=== PATIENT | female | born 1960 | race Caucasian/White ===

== ENCOUNTER 2017-07-02 16:27 | Emergency (ER) | payer BC, OTHER | END 2017-07-02 23:26 | disposition home or self-care (01) | LOC: FTE 23:26 | DX: S30.850A Superficial foreign body of lower back and pelvis, initial encounter (principal); W45.8XXA Other foreign body or object entering through skin, initial encounter; Y92.9 Unspecified place or not applicable | CPT/HCPCS: 99283; Z7502 ==